=== PATIENT | male | born 1975 | race Caucasian/White ===

== ENCOUNTER 2018-02-24 10:50 | Inpatient (IN) | payer OTHER ==
[2018-02-24] MEDS ORDERED: PROPOFOL 20 ML (12:39)
[2018-02-24] MEDS ORDERED: ROCURONIUM 50 MG INJ (12:39)
[2018-02-24] MEDS ORDERED: CEFAZOLIN 1 GM INJ (12:39)
[2018-02-24] MEDS ORDERED: MIDAZOLAM 1 MG/ML 2 ML INJ (12:40)
[2018-02-24] MEDS ORDERED: HYDROmorphONE 2 MG/ML SYG (12:40)
[2018-02-24] MEDS ORDERED: HYDROmorphONE 1 MG/5 ML IV SYRINGE IV (13:00)
[2018-02-24] MEDS ORDERED: FENTAnyl 50 MCG/ML VIAL IV ×3 (13:00)
[2018-02-24] MEDS ORDERED: ONDANSETRON 4 MG INJ IV ×2 (13:00→15:00)
[2018-02-24] MEDS ORDERED: hydrALAzine 20 MG INJ IV (13:00)
[2018-02-24] MEDS ORDERED: OXYCODONE/ACETAMINOPHEN (5/325) TAB PO ×2 (13:00)
[2018-02-24] MEDS ORDERED: MEPERIDINE 25 MG INJ IV (13:00)
[2018-02-24] MEDS ORDERED: DIPHENHYDRAMINE 50 MG INJ IV (13:00)
[2018-02-24] MEDS ORDERED: LABETALOL HCL 20MG INJ IV (13:00)
[2018-02-24] MEDS ORDERED: ALBUMIN HUMAN 5% 250 ML IV (13:00)
[2018-02-24] MEDS ORDERED: METOCLOPRAMIDE 10 MG INJ IV (13:00)
[2018-02-24] MEDS ORDERED: EPHEDrine SULFATE 50 MG/5 ML SYG IV (13:00)
[2018-02-24] MEDS: LIDOCAINE 1%/EPI 30 ML INJ (14:19)
[2018-02-24] MEDS: POLYMYXIN/BACITRACIN 1L IRRIG (14:19)
[2018-02-24] MEDS: GELATIN SIZE 100 SPONGE (14:19)
[2018-02-24] MEDS: THROMBIN 5000 UNIT VIAL (14:20)
[2018-02-24] MEDS ORDERED: METOCLOPRAMIDE 10 MG INJ (14:34)
[2018-02-24] MEDS ORDERED: DEXAMETHASONE 4 MG/ML 1 ML INJ (14:34)
[2018-02-24] MEDS ORDERED: ONDANSETRON 4 MG INJ (14:34)
[2018-02-24] MEDS ORDERED: ACETAMINOPHEN 1000MG/100ML IV 100 ML (14:34)
[2018-02-24] MEDS ORDERED: SUGAMMADEX SODIUM 200 MG/2 ML VIAL IV (14:42)
[2018-02-24] MEDS: HYDROmorphONE 1 MG/5 ML IV SYRINGE IV ×2 (15:29→15:44)
[2018-02-24] MEDS: DEXTROSE 5%-LR 1,000 ML IV (16:44)
[2018-02-24] MEDS: morphine 2 MG INJ IV ×2 (18:28→23:14)
[2018-02-24] MEDS: CEFAZOLIN 1 GM/50 ML (PMX) 50 ML IVPB (21:27)
[2018-02-25] MEDS: HYDROCODONE/APAP (10/325) TAB PO ×5 (00:58→21:15)
[2018-02-25] MEDS: DEXTROSE 5%-LR 1,000 ML IV ×2 (01:00→03:12)
[2018-02-25] MEDS: morphine 2 MG INJ IV ×4 (03:14→18:48)
[2018-02-25] MEDS: CEFAZOLIN 1 GM/50 ML (PMX) 50 ML IVPB ×3 (05:32→21:16)
[2018-02-25] MEDS ORDERED: ACETAMINOPHEN 500 MG TAB PO (12:30)
[2018-02-25] MEDS ORDERED: ONDANSETRON 4 MG INJ IV (12:30)
[2018-02-25] MEDS: GABAPENTIN 300 MG CAP PO ×2 (12:52→21:15)
[2018-02-26] MEDS: morphine 2 MG INJ IV ×4 (02:17→23:21)
[2018-02-26 04:57] LABS: ADD MAN DIFF? NO
[2018-02-26 05:06] LABS: WHITE BLOOD COUNT 13.6 10^3/ul (4.8-10.8)
[2018-02-26 05:06] LABS: BASOPHIL # 0.1 10^3/ul (0.0-0.1); BASOPHILS % 0.4 % (0.0-2.0); EOSINOPHILS # 0.1 10^3/ul (0.0-0.5); EOSINOPHILS % 0.7 % (0.0-7.0); HEMATOCRIT 43.7 % (42.0-52.0); HEMOGLOBIN 14.9 g/dl (14.0-18.0); LYMPHOCYTES # 4.4 10^3/ul (0.8-2.9); LYMPHOCYTES % 32.2 % (15.0-51.0); MEAN CORPUSCULAR HEMOGLOBIN 30.8 pg (29.0-33.0); MEAN CORPUSCULAR HGB CONC 34.1 g/dl (32.0-37.0); MEAN CORPUSCULAR VOLUME 90.5 fl (82.0-101.0); MONOCYTES % 7.4 % (0.0-11.0); NEUTROPHILS % 59.1 % (39.0-77.0); PLATELET COUNT 440 10^3/UL (140-415); RED BLOOD COUNT 4.83 10^6/ul (4.70-6.10); RED CELL DISTRIBUTION WIDTH 13.6 % (11.5-14.5)
[2018-02-26 05:30] LABS: ANION GAP 11 (8-16); BLOOD UREA NITROGEN 14 mg/dl (7-20); CALCIUM 8.8 mg/dl (8.4-10.2); CARBON DIOXIDE 30 mmol/L (21-31); CHLORIDE 108 mmol/L (97-110); CREATININE 0.92 mg/dl (0.61-1.24); GLUCOSE 99 mg/dl (70-220); POTASSIUM 4.5 mmol/L (3.5-5.1); SODIUM 144 mmol/L (135-144)
[2018-02-26] MEDS: CEFAZOLIN 1 GM/50 ML (PMX) 50 ML IVPB ×3 (05:55→20:27)
[2018-02-26] MEDS: PANTOPRAZOLE (EC) 40 MG TAB PO (05:55)
[2018-02-26] MEDS: HYDROCODONE/APAP (10/325) TAB PO (06:00)
[2018-02-26] MEDS: GABAPENTIN 300 MG CAP PO ×3 (08:54→20:27)
[2018-02-27] MEDS: PANTOPRAZOLE (EC) 40 MG TAB PO (05:13)
[2018-02-27] MEDS: morphine 2 MG INJ IV (08:17)
[2018-02-27] MEDS: GABAPENTIN 300 MG CAP PO ×2 (08:19→12:55)
[2018-02-27] MEDS: HYDROCODONE/APAP (10/325) TAB PO ×2 (09:06→15:16)
== END 2018-02-27 16:00 | disposition home or self-care (01) | DRG 460 ==
LOC: REC 10:50 → MS1 16:15
PROC: 0SG0071 Fusion of Lumbar Vertebral Joint with Autologous Tissue Substitute, Posterior Approach, Posterior Column, Open Approach (ICD-10-PCS; principal; 2018-02-24 13:05)
PROC: 0QN00ZZ Release Lumbar Vertebra, Open Approach (ICD-10-PCS; 2018-02-24 13:05)
DX: M47.896 Other spondylosis, lumbar region (principal); M51.26 Other intervertebral disc displacement, lumbar region
CPT/HCPCS: 72100; 80048; 85025; 86850; 86900; 86901; 87086; 97110; 97116; 97161; 97530